=== PATIENT | male | born 2000 | race Caucasian/White ===

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

== ENCOUNTER 2019-02-03 00:32 | Emergency (ER) | payer OTHER, MEDICAID ==
[~2019-02-03] VITALS: Ht 182.9 cm; Wt 104.3 kg
[~2019-02-03 00:32] MED LIST changes: +IBU800 MG PO; +NOHOMEMEDICATIONS PO
[2019-02-03] MEDS ORDERED: EPIPEN 2-P0.3 MG/0.3 IM (03:36)
[2019-02-03] MEDS ORDERED: PREDNISONE 20 M20 M1 PO (03:36)
[2019-02-03 03:41] VITALS: BP 118/52
== END 2019-02-03 03:41 | disposition home or self-care (01) ==
LOC: M.ERS 00:32
DX: R22.0 Localized swelling, mass and lump, head (principal); T78.1XXA Other adverse food reactions, not elsewhere classified, initial encounter; F32.9 Major depressive disorder, single episode, unspecified; F90.9 Attention-deficit hyperactivity disorder, unspecified type; Z88.8 Allergy status to other drugs, medicaments and biological substances; Y92.89 Other specified places as the place of occurrence of the external cause

== ENCOUNTER 2019-03-11 10:54 | Emergency (ER) | payer OTHER, MEDICAID ==
[~2019-03-11] VITALS: Ht 182.9 cm; Wt 106.6 kg
[~2019-03-11 10:54] MED LIST changes: +EPIPEN 2-P0.3 MG/0.3 IM; +PREDNISONE 20 M20 M1 PO
[2019-03-11] MEDS ORDERED: PREDNISONE 10 M10 MG PO (13:44)
[2019-03-11] MEDS ORDERED: ZYRTEC10 M2 PO (13:45)
[2019-03-11 13:56] VITALS: BP 148/43
== END 2019-03-11 13:57 | disposition home or self-care (01) ==
LOC: M.ERS 10:54
DX: L50.9 Urticaria, unspecified (principal); T78.40XA Allergy, unspecified, initial encounter; J45.909 Unspecified asthma, uncomplicated; Z90.49 Acquired absence of other specified parts of digestive tract; Z88.0 Allergy status to penicillin; X58.XXXA Exposure to other specified factors, initial encounter

== ENCOUNTER 2020-06-18 10:04 | Emergency (ER) | payer OTHER, MEDICAID ==
[~2020-06-18] VITALS: Ht 182.9 cm; Wt 106.6 kg
[~2020-06-18 10:04] MED LIST changes: +PREDNISONE 10 M10 MG PO; +ZYRTEC10 M2 PO
[2020-06-18] MEDS ORDERED: FLEXERIL PO (11:13)
[2020-06-18] MEDS ORDERED: VENTOLIN HFA 1818 GM INH (11:13)
[2020-06-18 11:26] VITALS: BP 160/88
== END 2020-06-18 11:28 | disposition home or self-care (01) ==
LOC: M.ERS 10:04
DX: S39.012A Strain of muscle, fascia and tendon of lower back, initial encounter (principal); J45.909 Unspecified asthma, uncomplicated; Z90.49 Acquired absence of other specified parts of digestive tract; Z88.0 Allergy status to penicillin; V89.2XXA Person injured in unspecified motor-vehicle accident, traffic, initial encounter; Y93.89 Activity, other specified; Y92.89 Other specified places as the place of occurrence of the external cause; Y99.8 Other external cause status